=== PATIENT | female | born 1960 | race African-American/Black ===

== ENCOUNTER 2020-08-18 10:11 | Emergency (ER) | payer MEDICARE, MEDICAID ==
[~2020-08-18] VITALS: Ht 162.6 cm; Wt 82.0 kg
[2020-08-18] MEDS ORDERED: ACETAMINOPHEN 325MG TABLET PO ONE (11:45)
[2020-08-18 14:54] VITALS: BP 152/70
== END 2020-08-18 14:55 | disposition home or self-care (01) ==
LOC: ER 10:38
DX: R51.9 Headache, unspecified (principal); F17.200 Nicotine dependence, unspecified, uncomplicated; I10 Essential (primary) hypertension; Z88.0 Allergy status to penicillin
CPT/HCPCS: 99284

== ENCOUNTER 2020-10-10 02:02 | Emergency (ER) | payer MEDICARE, MEDICAID ==
[~2020-10-10] VITALS: Ht 165.1 cm; Wt 68.0 kg
[2020-10-10 02:51] LABS: HEMATOCRIT. 38.4 % (36.0-48.0); HEMOGLOBIN. 12.2 g/dL (12.0-16.0); MEAN CORPUSCULAR HEMOGLOBIN 26.2 pg (28.0-32.0); MEAN CORPUSCULAR VOLUME 82.5 fL (81.0-99.0); MEAN PLATELET VOLUME 7.8 fl (7.4-10.4); PLATELET 269 x1000/uL (130-400); RED BLOOD CELL COUNT 4.65 mill/uL (4.2-5.4)
[2020-10-10 03:14] LABS: CHLORIDE 107 mEq/L (98-107)
[2020-10-10 03:18] LABS: ETHANOL BLOOD < 10 mg/dL
[2020-10-10 03:31] LABS: HCG SCREEN NEGATIVE
[2020-10-10] MEDS: RISPERIDONE 1MG TABLET PO SCH ×3 (04:18→20:00)
[2020-10-10 08:02] LABS: ATYPICAL LYMPHOCYTES 5
[2020-10-10 08:03] LABS: PLATELET ESTIMATE NORMAL
[2020-10-10 11:44] LABS: CLARITY URINE CLEAR (CLEAR); COLOR URINE YELLOW (YELLOW); KETONES URINE NEGATIVE (NEGATIVE); LEUKOCYTE ESTERASE URINE TRACE (NEGATIVE); NITRITE URINE NEGATIVE (NEGATIVE); OCCULT BLOOD URINE NEGATIVE (NEGATIVE); PH URINE 5.5 (4.5-8.0); PROTEIN URINE NEGATIVE (NEGATIVE); SPECIFIC GRAVITY URINE 1.007 (1.005-1.030); UROBILINOGEN URINE 0.2 E.U./dL (0.2-1.0)
[2020-10-10 13:33] LABS: *AMPHETAMINES SCREEN URINE NEGATIVE (NEGATIVE); *BARBITURATES SCREEN URINE NEGATIVE (NEGATIVE); *BENZODIAZEPINES SCREEN URINE NEGATIVE (NEGATIVE)
[2020-10-10 13:34] LABS: *COCAINE SCREEN URINE NEGATIVE (NEGATIVE); METHADONE URINE SCREEN NEGATIVE (NEGATIVE); PHENCYCLIDINE URINE SCREEN NEGATIVE (NEGATIVE)
[2020-10-10 13:35] LABS: CANNABINOID URINE SCREEN NEGATIVE (NEGATIVE); OPIATES URINE SCREEN NEGATIVE (NEGATIVE)
[2020-10-11] MEDS: RISPERIDONE 1MG TABLET PO SCH (09:45)
[2020-10-11 16:00] VITALS: BP 123/76
== END 2020-10-11 16:50 ==
LOC: ER 02:02
DX: R45.851 Suicidal ideations (principal); R45.850 Homicidal ideations; I10 Essential (primary) hypertension; Z20.822 Contact with and (suspected) exposure to COVID-19; Z72.89 Other problems related to lifestyle
CPT/HCPCS: 36415; 80053; 80305; 80307; 80320; 80329; 81003; 81025; 84443; 84703; 85025; 93005; 99285; C9803; U0003; G0480